=== PATIENT | male | born 1945 | race Caucasian/White ===

== ENCOUNTER → 2020-11-09 15:52 | Outpatient (BNVA) | payer BC, MEDICARE, SELFPAY | PROVIDERS: Visit Provider Urology | DX: Z76.89 Persons encountering health services in other specified circumstances (principal) | CPT/HCPCS: Q3014 ==

== ENCOUNTER → 2021-05-10 14:26 | Outpatient (BNVA) | payer BC, MEDICARE, SELFPAY | PROVIDERS: Visit Provider Urology | DX: R97.20 Elevated prostate specific antigen [PSA] (principal) | CPT/HCPCS: 99212 ==

== ENCOUNTER → 2022-05-09 14:27 | Outpatient (BNVA) | payer BC, SELFPAY | PROVIDERS: Visit Provider Urology | DX: R97.20 Elevated prostate specific antigen [PSA] (principal); N40.1 Benign prostatic hyperplasia with lower urinary tract symptoms; N13.8 Other obstructive and reflux uropathy; N39.43 Post-void dribbling | CPT/HCPCS: 99212 ==

== ENCOUNTER 2022-11-07 15:07 | Outpatient (AMB) | payer BC, SELFPAY ==
--- NOTE | 2022-11-07 15:21 | MHC.OFFVIS ---
Intake Intake Visit Reasons: 6 Month PSA(SET) Intake Note: Patient is present for PSA Follow Up Urology Medication: None Blood Thinner: None Alumni Relations Manager Required: No Allergies No Known Allergies Allergy (Verified 08/07/23 14:55) HPI HPI Comments History of Present Illness Details Finn is a very pleasant male. He is a patient of Dr. Amaya. He is seen for the following urologic conditions - elevated PSA PSA staying stable Continue six-month follow-up Discussed repeat PSA in 6 months versus trial of finasteride At this stage he feels symptoms of prostate tolerable Repeat PSA in 6 months with no coffee in the morning and no sex night before Elevated PSA He presents for - further evaluation of elevated PSA Current management is - observation - had short course of cipro with PCP 10/14 Laboratory investigations include - a total PSA evaluation. - 09/13 4.8 - 04/14 4.9, 05/16 6.1 20%, 11/15 6.4 18% Individualized Prostate Cancer Risk Calculator - < 5% high risk Symptoms include - weaker stream, nocturia x1, does fully empty Therapeutic plan will be - continue PSA surveillance PFSH Social History Years Smoked: 50 years Review of Systems Const Denies chills and Denies fever(s) Card Reports no additional complaints and Denies syncope Resp Denies cough GI Denies abdominal pain and Denies heartburn Reports as per HPI and Denies change in libido Neuro Denies syncope Psych Denies change in libido Endo Denies change in libido Physical Exam Const General: cooperative, healthy appearing, comfortable and no acute distress Orientation/consciousness: patient oriented x3 HEENT Face and sinus: Yes normal facial exam Mouth: moist mucous membranes Neck Neck: Yes normal visual inspection, Yes full ROM and Yes trachea midline Chest Chest palpation & inspection: normal inspection of the chest Resp Effort & Inspection: normal respiratory effort, able to speak in complete sentences and no respiratory distress GI Inspection: Yes normal to inspection Back/Spine/Pelvis Cervical Spine: normal cervical lordosis Thoracic/Lumbar Spine: thoracic and lumbar spine normal to inspection Skin General skin exam: no rashes or lesions noted Neuro General: patient oriented x3, gait normal, tone normal and moves all extremities Extrem General: Yes normal to inspection and Yes capillary refill normal Assessment & Plan Assessment & Plan (1) Elevated PSA: Code(s): R97.20 - Elevated prostate specific antigen [PSA] (2) Benign prostatic hyperplasia (BPH) with post-void dribbling: Code(s): N40.1 - Benign prostatic hyperplasia with lower urinary tract symptoms; N39.43 - Post-void dribbling Plan Six-month follow-up PSA Orders: Orders PSA,Total (Free>4and<10) 6 Months N40.1 - Benign prostatic hyperplasia with lower urinary tract symptoms, N39.43 - Post-void dribbling Patient Instructions: Imaging studies, laboratory and physical exam results were discussed and reviewed in detail. No major barriers to patient understanding were identified. An opportunity to ask questions regarding the treatment plan was provided. All questions were answered. The patient expressed understanding and agreement with the above treatment plan. The patient is aware they should contact our office by phone for worsening of their current condition or the appearance of new urologic symptoms. Compliance is encouraged with any medications and followup testing that is ordered. It is a privilege to participate in the urologic care of your patient. If you have any questions or concerns regarding treatment for the above conditions, or other urologic issues, please do not hesitate to contact me. The office telephone contact is [phone]. This note is constructed using voice recognition software. While every effort has been made to ensure accuracy time study technician errors may have been included. Yours sincerely, Dr Jovani Ivey MD, [facility] [place] - Urology Providers of Expert, Compassionate Care for the Genitourinary System Coding Level of Care Code Est Pt Level 3 (31063) Diagnoses Elevated PSA R97.20 Benign prostatic hyperplasia (BPH) with post-void dribbling N40.1; N39.43
== END 2022-11-07 15:49 | disposition home or self-care (01) ==
LOC: HO.HUSH 15:07
PROVIDERS: Visit Provider Urology
DX: R97.20 Elevated prostate specific antigen [PSA] (principal); N40.1 Benign prostatic hyperplasia with lower urinary tract symptoms; N39.43 Post-void dribbling
CPT/HCPCS: 99213; 99499

== ENCOUNTER 2023-08-07 14:49 | Outpatient (AMB) | payer BC, SELFPAY ==
--- NOTE | 2023-08-07 14:55 | A.OFFVIS_ITS ---
Intake Intake Visit Reasons: PSA Results(set) Intake Note: Patient is present for Follow Up PSA Urology Med: None Antibiotic Allergy: None Blood Thinner: None Pharmacy: [facility] Allergies No Known Allergies Allergy (Verified 08/07/23 14:55) HPI HPI Comments History of Present Illness Details Finn is a very pleasant male. He is a patient of Dr. Walter. He is seen for the following urologic conditions - elevated PSA Six month follow-up PSA - PSA remains elevated Recommend trial of finasteride Four month follow-up PSA Elevated PSA He presents for - further evaluation of elevated PSA Current management is - observation - had short course of cipro with PCP 10/14 Laboratory investigations include - a total PSA evaluation. - 09/13 4.8 - 04/14 4.9, 05/16 6.1 20%, 11/15 6.4 18%, 05/17 7.0 Individualized Prostate Cancer Risk Calculator - < 5% high risk Symptoms include - weaker stream, nocturia x1, does fully empty Therapeutic plan will be - continue PSA surveillance PFSH Social History Years Smoked: 50 years Review of Systems Const Denies chills and Denies fever(s) Card Reports no additional complaints and Denies syncope Resp Denies cough GI Denies abdominal pain and Denies heartburn Reports as per HPI and Denies change in libido Neuro Denies syncope Psych Denies change in libido Endo Denies change in libido Physical Exam Const General: cooperative, healthy appearing, comfortable and no acute distress Orientation/consciousness: patient oriented x3 HEENT Face and sinus: Yes normal facial exam Mouth: moist mucous membranes Neck Neck: Yes normal visual inspection, Yes full ROM and Yes trachea midline Chest Chest palpation & inspection: normal inspection of the chest Resp Effort & Inspection: normal respiratory effort, able to speak in complete sentences and no respiratory distress GI Inspection: Yes normal to inspection Back/Spine/Pelvis Cervical Spine: normal cervical lordosis Thoracic/Lumbar Spine: thoracic and lumbar spine normal to inspection Skin General skin exam: no rashes or lesions noted Neuro General: patient oriented x3, gait normal, tone normal and moves all extremities Extrem General: Yes normal to inspection and Yes capillary refill normal Assessment & Plan Assessment & Plan (1) Benign prostatic hyperplasia (BPH) with post-void dribbling: Code(s): N40.1 - Benign prostatic hyperplasia with lower urinary tract symptoms; N39.43 - Post-void dribbling (2) Elevated PSA: Code(s): R97.20 - Elevated prostate specific antigen [PSA] Plan Four month follow-up PSA Orders: Orders PSA,Total (Free>4and<10) 4 Months R97.20 - Elevated prostate specific antigen [PSA] Medications: New finasteride 5 mg PO DAILY 90 tabs 1RF 90 days N39.43 - Post-void dribbling, N40.1 - Benign prostatic hyperplasia with lower urinary tract symptoms Patient Instructions: Imaging studies, laboratory and physical exam results were discussed and reviewed in detail. No major barriers to patient understanding were identified. An opportunity to ask questions regarding the treatment plan was provided. All questions were answered. The patient expressed understanding and agreement with the above treatment plan. The patient is aware they should contact our office by phone for worsening of their current condition or the appearance of new urologic symptoms. Compliance is encouraged with any medications and followup testing that is ordered. It is a privilege to participate in the urologic care of your patient. If you have any questions or concerns regarding treatment for the above conditions, or other urologic issues, please do not hesitate to contact me. The office telephone contact is [phone]. This note is constructed using voice recognition software. While every effort has been made to ensure accuracy technical expert errors may have been included. Yours sincerely, Dr Jovani Ivey MD, [facility] - Urology Providers of Expert, Compassionate Care for the Genitourinary System Coding Level of Care Code Est Pt Level 4 (66797) Diagnoses Benign prostatic hyperplasia (BPH) with post-void dribbling N40.1; N39.43 Elevated PSA R97.20
== END 2023-08-07 15:12 | disposition home or self-care (01) ==
PROVIDERS: Visit Provider Urology
DX: N40.1 Benign prostatic hyperplasia with lower urinary tract symptoms (principal); N39.43 Post-void dribbling; R97.20 Elevated prostate specific antigen [PSA]
CPT/HCPCS: 99214

== ENCOUNTER → 2023-08-07 14:49 | Outpatient (BNVA) | payer BC, SELFPAY | PROVIDERS: Visit Provider Urology ==

== ENCOUNTER 2024-01-29 15:10 | Outpatient (AMB) | payer BC, SELFPAY ==
--- NOTE | 2024-01-29 15:52 | MHC.OFFVIS ---
Intake Intake Visit Reasons: 4m/PSA(set) Intake Note: Patient is Present for Follow Up PSA Urology Medication:Finasteride, Antibiotic Allergies: None Blood Thinners: none Allergies No Known Allergies Allergy (Verified 01/29/24 15:53) Medication List - Last Reconciled 01/29/24 by Jovani Ivey MD amitriptyline 10 mg PO BEDTIME atorvastatin 80 mg PO DAILY calcium carbonate (Calcium) 600 mg PO DAILY escitalopram oxalate 10 mg PO DAILY finasteride 5 mg PO DAILY 90 days zzqiceypxku-mhibsgper-htyzpanz 200-62.5-25 mcg (Trelegy Ellipta) 1 ea inhalation DAILY hydrochlorothiazide 12.5 mg PO QAM valsartan 80 mg PO DAILY HPI HPI Comments History of Present Illness Details Finn is a very pleasant male. He is a patient of Dr. Walter. He is seen for the following urologic conditions - elevated PSA Six month follow-up PSA - decreased from 7.0-4.0 - six-month follow-up PSA Elevated PSA He presents for - further evaluation of elevated PSA Current management is - observation - had short course of cipro with PCP 10/14 Laboratory investigations include - a total PSA evaluation. - 09/13 4.8 - 04/14 4.9, 05/16 6.1 20%, 11/15 6.4 18%, 05/17 7.0, 01/18 4.0 Individualized Prostate Cancer Risk Calculator - < 5% high risk Symptoms include - weaker stream, nocturia x1, does fully empty Therapeutic plan will be - continue PSA surveillance PFSH Social History Years Smoked: 50 years Review of Systems Const Denies chills and Denies fever(s) Card Reports no additional complaints and Denies syncope Resp Denies cough GI Denies abdominal pain and Denies heartburn Reports as per HPI and Denies change in libido Neuro Denies syncope Psych Denies change in libido Endo Denies change in libido Physical Exam Const General: cooperative, healthy appearing, comfortable and no acute distress Orientation/consciousness: patient oriented x3 HEENT Face and sinus: Yes normal facial exam Mouth: moist mucous membranes Neck Neck: Yes normal visual inspection, Yes full ROM and Yes trachea midline Chest Chest palpation & inspection: normal inspection of the chest Resp Effort & Inspection: normal respiratory effort, able to speak in complete sentences and no respiratory distress GI Inspection: Yes normal to inspection Back/Spine/Pelvis Cervical Spine: normal cervical lordosis Thoracic/Lumbar Spine: thoracic and lumbar spine normal to inspection Skin General skin exam: no rashes or lesions noted Neuro General: patient oriented x3, gait normal, tone normal and moves all extremities Extrem General: Yes normal to inspection and Yes capillary refill normal Assessment & Plan Assessment & Plan (1) Benign prostatic hyperplasia (BPH) with post-void dribbling: Code(s): N40.1 - Benign prostatic hyperplasia with lower urinary tract symptoms; N39.43 - Post-void dribbling (2) Elevated PSA: Code(s): R97.20 - Elevated prostate specific antigen [PSA] Plan Continue finasteride Six-month follow-up Orders: Orders PSA,Total (Free>4and<10) 6 Months N40.1 - Benign prostatic hyperplasia with lower urinary tract symptoms, N39.43 - Post-void dribbling Medications: Refilled finasteride 5 mg PO DAILY 90 tabs 1RF 90 days N40.1 - Benign prostatic hyperplasia with lower urinary tract symptoms, N39.43 - Post-void dribbling Patient Instructions: Imaging studies, laboratory and physical exam results were discussed and reviewed in detail. No major barriers to patient understanding were identified. An opportunity to ask questions regarding the treatment plan was provided. All questions were answered. The patient expressed understanding and agreement with the above treatment plan. The patient is aware they should contact our office by phone for worsening of their current condition or the appearance of new urologic symptoms. Compliance is encouraged with any medications and followup testing that is ordered. It is a privilege to participate in the urologic care of your patient. If you have any questions or concerns regarding treatment for the above conditions, or other urologic issues, please do not hesitate to contact me. The office telephone contact is [phone]. This note is constructed using voice recognition software. While every effort has been made to ensure accuracy survey research center director errors may have been included. Yours sincerely, Dr Jovani Ivey MD, [facility] - Urology Providers of Expert, Compassionate Care for the Genitourinary System Coding Level of Care Code Est Pt Level 3 (99817) Diagnoses Benign prostatic hyperplasia (BPH) with post-void dribbling N40.1; N39.43 Elevated PSA R97.20
== END 2024-01-29 16:23 | disposition home or self-care (01) ==
PROVIDERS: PCP Internal Medicine; Visit Provider Urology
DX: N40.1 Benign prostatic hyperplasia with lower urinary tract symptoms (principal); N39.43 Post-void dribbling; R97.20 Elevated prostate specific antigen [PSA]
CPT/HCPCS: 99213

== ENCOUNTER → 2024-01-29 15:10 | Outpatient (BNVA) | payer BC, SELFPAY | PROVIDERS: PCP Internal Medicine; Visit Provider Urology ==

== ENCOUNTER 2024-09-09 13:19 | Outpatient (AMB) | payer BC, SELFPAY ==
--- NOTE | 2024-09-09 13:20 | MHC.OFFVIS ---
Intake Visit Reasons: 6M Follow Up-PSA(SET)[facility] Intake Note: Patient is Present for Telephone Follow Up PSA Urology Med:Finasteride Antibiotic Allergy:None Blood Thinner: None Recent PSA: 09/05/24 PSA: 4.2 Retail Seasonal Specialist Required: No Allergies No Known Allergies Allergy (Verified 09/09/24 13:24) HPI Comments Details: Finn is a very pleasant male. He is a patient of Dr. Walter. He is seen for the following urologic conditions - elevated PSA Telemedicine Evaluation 15 min Consultation DoximCARDFREE Omar Video Six month follow-up PSA - decreased from 7.0-4.0-4.2 - six-month follow-up PSA Elevated PSA He presents for - further evaluation of elevated PSA Current management is - observation - had short course of cipro with PCP 10/14 Laboratory investigations include - a total PSA evaluation. - 09/13 4.8, 04/14 4.9, 05/16 6.1 20%, 11/15 6.4 18%, 05/17 7.0, 01/18 4.0, 08/18 4.2 Individualized Prostate Cancer Risk Calculator - < 5% high risk Symptoms include - weaker stream, nocturia x1, does fully empty Therapeutic plan will be - continue PSA surveillance PFSH Social History Years Smoked: 50 years Telehealth Telehealth Telehealth Platform: [employer] Location of provider rendering services: practice address Location of patient: address on file Patient Identification confirmed using: Name, : Yes Telehealth method: video Patient verbally consented to treatment: Yes Patient verbally consented to billing insurance company: Yes Patient informed of any privacy concerns related to visit: Yes Minutes spent on Phone/Video with Pt.: 15 Assessment & Plan Assessment & Plan (1) Benign prostatic hyperplasia (BPH) with post-void dribbling: Code(s): N40.1 - Benign prostatic hyperplasia with lower urinary tract symptoms; N39.43 - Post-void dribbling Category: Medical (2) Elevated PSA: Code(s): R97.20 - Elevated prostate specific antigen [PSA] Category: Medical Plan Six-month follow-up PSA office Orders: Orders PSA,Total (Free>4and<10) 6 Months R97.20 - Elevated prostate specific antigen [PSA] Prostate Specific Antigen 09/02/24 R97.20 - Elevated prostate specific antigen [PSA] Patient Instructions: Imaging studies, laboratory and physical exam results were discussed and reviewed in detail. No major barriers to patient understanding were identified. An opportunity to ask questions regarding the treatment plan was provided. All questions were answered. The patient expressed understanding and agreement with the above treatment plan. The patient is aware they should contact our office by phone for worsening of their current condition or the appearance of new urologic symptoms. Compliance is encouraged with any medications and followup testing that is ordered. It is a privilege to participate in the urologic care of your patient. If you have any questions or concerns regarding treatment for the above conditions, or other urologic issues, please do not hesitate to contact me. The office telephone contact is [phone]. This note is constructed using voice recognition software. While every effort has been made to ensure accuracy scheduling coordinator errors may have been included. Yours sincerely, Dr Jovani Ivey MD, [facility] - Urology Providers of Expert, Compassionate Care for the Genitourinary System Coding Level of Care Code Tele Est Pt Level 3 (79389) Diagnoses Benign prostatic hyperplasia (BPH) with post-void dribbling N40.1; N39.43 Elevated PSA R97.20
== END 2024-09-09 15:37 | disposition home or self-care (01) ==
LOC: HO.HUSH 13:19
PROVIDERS: PCP Internal Medicine; Visit Provider Urology
DX: N40.1 Benign prostatic hyperplasia with lower urinary tract symptoms (principal); N39.43 Post-void dribbling; R97.20 Elevated prostate specific antigen [PSA]
CPT/HCPCS: 99213

== ENCOUNTER → 2024-09-09 13:19 | Outpatient (BNVA) | payer BC, SELFPAY | PROVIDERS: PCP Internal Medicine; Visit Provider Urology ==

== ENCOUNTER 2025-03-16 15:45 | Outpatient (AMB) | payer BC, SELFPAY ==
--- NOTE | 2025-03-16 16:06 | A.OFFVIS_ITS ---
Intake Visit Reasons: 6M PSA Intake Note: Patient presents for a 6m follow up. Allergies No Known Allergies Allergy (Verified 03/16/25 16:12) HPI Comments Details: Finn is a very pleasant male. He is a patient of Dr. Walter. He is seen for the following urologic conditions - elevated PSA Six month follow-up PSA Remaining steady in low 4s Adequate voiding parameters Twelve month follow-up repeat PSA Elevated PSA He presents for - further evaluation of elevated PSA Current management is - observation - had short course of cipro with PCP 10/14 Laboratory investigations include - a total PSA evaluation. - 09/13 4.8, 04/14 4.9, 05/16 6.1 20%, 11/15 6.4 18%, 05/17 7.0, 01/18 4.0, 08/18 4.2, 03/19 4.5 Individualized Prostate Cancer Risk Calculator - < 5% high risk Symptoms include - weaker stream, nocturia x1, does fully empty Therapeutic plan will be - continue PSA surveillance PFSH Social History Years Smoked: 50 years Review of Systems Const Denies chills and Denies fever(s) Card Reports no additional complaints and Denies syncope Resp Denies cough GI Denies abdominal pain and Denies heartburn Reports as per HPI and Denies change in libido Neuro Denies syncope Psych Denies change in libido Endo Denies change in libido Physical Exam Const General: cooperative, healthy appearing, comfortable and no acute distress Orientation/consciousness: patient oriented x3 HEENT Face and sinus: Yes normal facial exam Mouth: moist mucous membranes Neck Neck: Yes normal visual inspection, Yes full ROM and Yes trachea midline Chest Chest palpation & inspection: normal inspection of the chest Resp Effort & Inspection: normal respiratory effort, able to speak in complete sentences and no respiratory distress GI Inspection: Yes normal to inspection Back/Spine/Pelvis Cervical Spine: normal cervical lordosis Thoracic/Lumbar Spine: thoracic and lumbar spine normal to inspection Skin General skin exam: no rashes or lesions noted Neuro General: patient oriented x3, gait normal, tone normal and moves all extremities Extrem General: Yes normal to inspection and Yes capillary refill normal Assessment & Plan Assessment & Plan (1) Elevated PSA: Code(s): R97.20 - Elevated prostate specific antigen [PSA] Category: Medical (2) Benign prostatic hyperplasia (BPH) with post-void dribbling: Code(s): N40.1 - Benign prostatic hyperplasia with lower urinary tract symptoms; N39.43 - Post-void dribbling Category: Medical Plan 12 month follow-up repeat PSA Orders: Orders PSA,Total (Free>4and<10) 12 Months N39.43 - Post-void dribbling, N40.1 - Benign prostatic hyperplasia with lower urinary tract symptoms Medications: Refilled finasteride 5 mg PO DAILY 90 tabs 3RF 90 days N39.43 - Post-void dribbling, N40.1 - Benign prostatic hyperplasia with lower urinary tract symptoms Patient Instructions: This note is constructed using voice recognition software. While every effort has been made to ensure accuracy tooth cutter clutch errors may have been included. Imaging studies, laboratory and physical exam results were discussed and reviewed in detail. No major barriers to patient understanding were identified. An opportunity to ask questions regarding the treatment plan was provided. All questions were answered. The patient expressed understanding and agreement with the above treatment plan. The patient is aware they should contact our office by phone for worsening of their current condition or the appearance of new urologic symptoms. Compliance is encouraged with any medications and followup testing that is ordered. It is a privilege to participate in the urologic care of your patient. If you have any questions or concerns regarding treatment for the above conditions, or other urologic issues, please do not hesitate to contact me. The office telephone contact is [phone]. Sincerely, Dr Jovani Ivey MD, [facility] - Urology Compassionate Specialist Care for the Genitourinary System Coding Level of Care Code Est Pt Level 3 (02755) Complex EM visit Add On G2211 Diagnoses Elevated PSA R97.20 Benign prostatic hyperplasia (BPH) with post-void dribbling N40.1; N39.43
--- OUTSIDE RECORDS SUMMARY | 2025-03-16 18:31 | XMS_ITS | Data Portability ---
Author Organization [place] - [facility], Allergy Address [address] [place] [id number] Care Team Providers Care Legal Summer Intern Name Role Phone MARIAH PEREZ Primary Care Provider [phone] Assessment Encounter Date Assessment Date Assessment LastModified by Organization Details LastModified Time 06/17/2024 06/17/2024 Patient presents for cerumen removal. Cerumen removed bilaterally without difficulty. Follow up as scheduled for repeat procedure. [email or web address] Not available 06/17/2024 14:46:35 01/06/2025 01/06/2025 79 year-old male with bilateral amplification presents for cerumen impaction removal. Cerumen impaction removed bilaterally, which patient tolerated well. Otologic exam demonstrated TMs are intact with well-aerated middle ear spaces. I recommend updating his audiometric testing. He will return for formal hearing evaluation. Then he will continue his routine 6-month cerumen debridements. [email or web address] Not available 01/06/2025 16:01:22 02/03/2025 02/03/2025 79-year-old male with bilateral amplification presents for hearing evaluation. Otologic exam demonstrates TMs are intact with well-aerated middle ear spaces. Audiogram shows stable neurosensory hearing loss. Recommend hearing aid adjustment or replacement as needed. Recommend annual follow up with repeat audiometric testing, or sooner with any concerns. Recommend 6-month cerumen debridement. [email or web address] Not available 02/03/2025 16:20:22 Plan of Treatment Reminders Order Date Submit Date Provider Last Modified By Organization Details Last Modified Time Details Appointments None record ed. Lab None record ed. Referral None record ed. Procedures None record ed. Surgeries None record ed. Imaging None record ed. Medication Orders None record ed. Patient TargetsNo targets recorded. Patient InstructionsNo instructions recorded. Reason for Referral None Reported. Results Created Date Observation Date Name Description Value Unit Range Abnormal Flag Note LastModifiedBy Organization Detail LastModifiedTime 07/15/20 24 02/07/2024 imagi ng/di agnos tic resul t No observ ation record ed. [email or web address] Not Available 03:17:20 07/15/20 24 05/20/2020 imagi ng/di agnos tic resul t No observ ation record ed. [email or web address] Not Available 03:17:28 07/15/20 24 05/20/2020 imagi ng/di agnos tic resul t No observ ation record ed. [email or web address] Not Available 03:17:30 07/15/20 24 01/17/2024 audio gram No observ ation record ed. [email or web address] Not Available 03:17:51 07/15/20 24 02/07/2024 audio gram No observ ation record ed. [email or web address] Not Available 03:17:54 07/15/20 24 04/13/2019 audio gram No observ ation record ed. [email or web address] Not Available 03:18:07 07/15/20 24 05/01/2019 audio gram No observ ation record ed. [email or web address] Not Available 03:18:10 07/15/20 24 05/20/2020 audio gram No observ ation record ed. [email or web address] Not Available 03:18:19 07/15/20 24 05/21/2019 audio gram No observ ation record ed. [email or web address] Not Available 03:18:22 07/15/20 24 06/17/2019 audio gram No observ ation record ed. [email or web address] Not Available 03:18:23 02/04/20 audio gram No observ ation record ed. [email or web address] Not Available 2024 16:15:59 Result Notes None recorded. Problems Name Problem SNOMED Code Status Onset Date Resolution Date Notes Provider Name and Address Organization Details Recorded Time Impacted cerumen of bilateral ears 44187823310 18512 Active 2017 Impacted cerumen, bilateral ; Note: Date Diagnosed : 04/10/2018 3:36 PM (H61.23) Not Available [facility] 4 02:49:50 Sensorine ural hearing loss of bilateral ears 630866448 Active 2017 Sensorine ural hearing loss, bilateral ; Note: Date Diagnosed : 04/10/2018 4:13 PM (H90.3) Not Available [facility] 4 02:49:52 Bilateral tinnitus 30470836245 02 Active 2017 Tinnitus, bilateral ; Note: Date Diagnosed : 04/10/2018 3:46 PM (H93.13) Not Available [facility] 4 02:49:52 Impacted cerumen in right ear 95059578198 04672 Active 2023 Impacted cerumen, right ear; Note: Date Diagnosed : 12/24/2023 2:29 PM (H61.21) Not Available [facility] 4 02:49:51 Problem Notes None recorded. Procedures Surgical History Date Name Laterality Status Provider Name and Address Organization Details Recorded Time 5 Air & Speech Audio with Tymps (53161, 06214 & 33067) completed SHAHIDA BRIDGES [address], [phone], [facility] - [facility] 02/03/2025 15:29:09 5 Cerumen removal without microscope bilat completed SHILO HATHAWAY PA-C [address] [place] [address], [phone], [facility] - [facility] 01/06/2025 16:01:57 4 Cerumen removal without microscope bilat completed DOMINIC SANTOYO PA-C [address] [place] [address],[address], [phone], [facility] - [facility] 06/17/2024 14:46:07 Imaging Results Imaging Date Name Status LastModified by Organ at[facility] Details LastModified Time 02/07/2024 imaging/diagno stic result completed Information not available 07/15/2024 03:17:20 05/20/2020 imaging/diagno stic result completed Information not available 07/15/2024 03:17:28 05/20/2020 imaging/diagno stic result completed Information not available 07/15/2024 03:17:30 01/17/2024 audiogram completed Information not available 07/15/2024 03:17:51 02/07/2024 audiogram completed Information not available 07/15/2024 03:17:54 04/13/2019 audiogram completed Information not available 07/15/2024 03:18:07 05/01/2019 audiogram completed Information not available 07/15/2024 03:18:10 05/20/2020 audiogram completed Information not available 07/15/2024 03:18:19 05/21/2019 audiogram completed Information not available 07/15/2024 03:18:22 06/17/2019 audiogram completed Information not available 07/15/2024 03:18:23 02/03/2025 audiogram completed BARCODE Information no t available 02/03/2025 16:15:59 Procedure Notes None recorded. Medical Equipment None Reported. Allergies No known drug allergies Medications Name Sig Start Date Stop Date Status Note LastModified by Organization Details LastModified Time celecoxib 200 mg capsule TAKE 1 CAPSULE BY MOUTH EVERY DAY active Not Available Not Available No t Available atorvasta tin 80 mg tablet TAKE 1 TABLET BY MOUTH EVERY DAY active Not Available Not Available No t Available doxycycli ne hyclate 100 mg capsule 02/03 completed Medicati on ID: [id number] D uration Value: 10 Brand Name: doxycycl ine hyclate Send Method: E-Prescr ibed Sub s Allowed: subs OK Speci al Instruct ion: TAKE 1 CAPSULE BY MOUTH TWICE A DAY, NO CALCIUM PRODUCTS 2 HOURS BEFOR E OR AFTER TAKING M edicatio nGeneric Name: doxycycl ine hyclate Not Available Not Available Not Available valsartan 80 mg tablet TAKE 1 TABLET BY MOUTH EVERY DAY active Not Available Not Available No t Available amoxicill in 500 mg tablet TAKE 1 TABLET BY MOUTH 3 TIMES A DAY FOR 7 DAYS 02/03 completed Not Available Not Available Not Available citalopra m 20 mg tablet 09/29 completed Medicati on ID: [id number] D uration Value: 30 Reason: () Brand Name: citalopr am Send Method: E-Prescr ibed Sub s Allowed: subs OK Medic ationGen ericName : citalopr am Not Available Not Available Not Available prednisol one acetate 1 % eye drops,[facility] 02/03 completed Medicati on ID: [id number] D uration Value: 18 Brand Name: predniso lone acetate Send Method: E-Prescr ibed Sub s Allowed: subs OK Speci al Instruct ion: INSTILL 1 DROP INTO LEFT EYE 4 TIMES A DAY Medi cationGe nericNam e: predniso lone acetate Not Available Not Available Not Available trazodone 100 mg tablet 05/20 completed Medicati on ID: [id number] D uration Value: 30 Reason: () Brand Name: trazodon e Send Method: E-Prescr ibed Sub s Allowed: subs OK Medic ationGen ericName : trazodon e Not Available Not Available Not Available amitripty line 10 mg tablet TAKE 1 TABLET BY MOUTH EVERYDAY AT BEDTIME 02/03 completed Not Available Not Available Not Available albuterol sulfate HFA 90 mcg/actua tion aerosol inhaler INHALE 2 PUFFS BY MOUTH EVERY 4 HOURS NEEDED FOR WHEEZING 02/03 completed Not Available Not Available Not Available finasteri de 5 mg tablet TAKE 1 TABLET BY MOUTH EVERY DAY active Not Available Not Available No t Available escitalop renzo 10 mg tablet TAKE 1 TABLET BY MOUTH EVERY DAY active Not Available Not Available No t Available Spiriva with HandiHale r 18 mcg and inhalatio n capsules 05/20 completed Medicati on ID: [id number] D uration Value: 90 Reason: () Brand Name: Spiriva with HandiHal er Send Method: E-Prescr ibed Sub s Allowed: subs OK Medic ationGen ericName : Spiriva with HandiHal er Not Available Not Available Not Available hydrochlo rothiazid e 12.5 mg tablet TAKE 1 TABLET BY MOUTH EVERY DAY active Not Available Not Available No t Available Citracal Plus Bone Density Builder 300 mg-200 unit-13.5 mg tablet 05/20 completed Medicati on ID: [id number] R bebeto: () Brand Name: Citracal Plus Bone Density Send Method: E-Prescr ibed Sub s Allowed: subs OK Medic ationGen ericName : Citracal Plus Bone Density Not Available Not Available Not Available Vitamin D3 50 mcg (2,000 unit) capsule 05/20 completed Medicati on ID: [id number] R bebeto: () Brand Name: Vitamin D3 Send Method: E-Prescr ibed Sub s Allowed: subs OK Medic ationGen ericName : Vitamin D3 Not Available Not Available Not Available Incruse Ellipta 62.5 mcg/actua tion powder for inhalatio n INHALE 1 PUFF BY MOUTH EVERY 24 HOURS 02/03 completed Not Available Not Available Not Available Trelegy Ellipta 100 mcg-62.5 mcg-25 mcg powder for inhalatio n INHALE 1 PUFF BY MOUTH EVERY DAY AT THE SAME TIME EVERY DAY 02/03 completed Not Available Not Available Not Available Wixela Inhub 250 mcg-50 mcg/dose powder for inhalatio n INHALE 1 PUFF BY MOUTH TWICE A DAY *RINSE MOUTH AND THROAT AFTER USE* 02/03 completed Not Available Not Available Not Available Trelegy Ellipta 200 mcg-62.5 mcg-25 mcg powder for inhalatio n INHALE 1 PUFFS BY MOUTH AT THE SAME TIME EVERY DAY active Not Available Not Available No t Available Vitals Date Recorded Body height Body mass index (BMI) Body weight Provider Name and Address Organization Details Last Updated DateTime 02/03/2025 180.34 cm 26.1 kg/m2 46696.77 g Shawnee Tierney [place] - [facility] 02/03/2025 15:36:01 Date Recorded Body height Body mass index (BMI) Body weight Provider Name and Address Organization Details Last Updated DateTime 06/17/2024 180.34 cm 26.8 kg/m2 63308.74 g [place] [facility] 06/17/2024 14:35:49 Date Recorded Body height Body mass index (BMI) Body weight Provider Name and Address Organization Details Last Updated DateTime 01/06/2025 180.34 cm 25.2 kg/m2 72331.22 g Maryann Gilbert [place] - [facility] 01/06/2025 15:42:01 Social History None recorded. Functional Status None recorded. Mental Status None recorded. Family History Nothing Reported. Medical History No medical history recorded. Past Encounters Encounter ID Performer Location Encounter Start Date Encounter Closed Date Diagnosis/Indication Diagnosis SNOMED-CT Code Diagnosis ICD10 Code Diagnosis Note [id number] BURKE REDDY MD [facility] [address] [address] 06/17/2024 13:57:09 06/17/2024 14:46:18 Impacted cerumen of bilateral ears 1916232944 270769 H61.23 Sensorineu ral hearing loss of bilateral ears 231034978 H90.3 [id number] JABARI GUTIERREZ MD [facility] [address] [address] 01/06/2025 15:36:15 01/06/2025 16:01:21 Impacted cerumen of bilateral ears 5757474085 356809 H61.23 Bilateral tinnitus 14687 98047 102 H93.13 Sensorineu ral hearing loss of bilateral ears 127183556 H90.3 [id number] JABARI GUTIERREZ MD [facility] [address] [address] 02/03/2025 14:57:04 02/03/2025 15:53:17 Sensorineural hearing loss of bilateral ears 695015104 H90.3 Audiologic al evaluation results:Ri ght ear:{{Norm al sloping* M ild Modera te Moderat christiano-severe Severe Pr ofound Nor mal auditory thresholds }} to {{mild mod erate mode rately-sev ere severe profound* with}} {{sensorin eural hearing loss with* cond uctive hearing loss with mixed hearing loss with}} {{excellen t good diogenes r* poor no t measurable }} word recognitio n.Left ear:{{Norm al sloping* M ild Modera te Moderat christiano-severe Severe Pr ofound Nor mal auditory thresholds }} to {{mild mod erate mode rately-sev ere severe * profound with}} {{sensorin eural hearing loss with* cond uctive hearing loss with mixed hearing loss with}} {{excellen t good diogenes r* poor no t measurable }} word recognitio n.Tympanom etry:Right Ear:{{Type A* Type As Type Ad Type C Type C, shallow & rounded Ty pe B Type B with large volume Cou ld not maintain a hermetic seal}}Left Ear:{{Type A* Type As Type Ad Type C Type C, shallow & rounded Ty pe B Type B with large volume Cou ld not maintain a hermetic seal}} Bilateral tinnitus 99372 69322 102 H93.13 Health Concerns Section Related Observation LastModified by Organization Detai ls LastModified Time None Recorded Concern Status LastModified by Organization Details LastModified Time None Recorded Advance Directives Directive None Recorded Payers Encounter Date Sequence Insurance Name Policy Number Policy Jarrett Covered Member ID Jarrett Member ID Guarantor Name 06/17/[address] [facility]: MEDICARE PPO BLUE (MEDICARE REPLACEMENT PPO) [id number] [employer] [id number] 01/06/[address] [facility]: MEDICARE PPO BLUE (MEDICARE REPLACEMENT PPO) [id number] [employer] [id number] 02/03/[address] [facility]: MEDICARE PPO BLUE (MEDICARE REPLACEMENT PPO) [id number] [employer] [id number] [address] [place] [address] [employer] Notes Date Note Type Note Provider Name and Address Organization Details Recorded Time 06/17/2024 text/html 78-year-old male presents for cerumen removal. Had hearing test in January showing sloping sensorineural hearing loss bilaterally. Feels his hearing continues to decline slowly. BURKE BRADY MD [address] [place] [address], [phone], [facility] - [facility] 06/17/2024 16:53:29 01/06/2025 text/html 79yo male presen ts for evaluation of the ears. He feels like his hearing aids do not work well. He brought them in our office. They are approximately 5 to 6 years old. He has not had any recent amplification adjustments. Denies otalgia, otorrhea, change in tinnitus, or Qtip use. JABARI GUTIERREZ MD [address] [place] [address], [phone], [facility] - [facility] 01/06/2025 17:37:24 02/03/2025 text/html 79 year-old male with bilateral amplification presents for hearing evaluation. His hearing aids broke and he is interested in fixing or updating the technology. He reports tinnitus in both ears, worse since he has not been able to wear aids. 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 JABARI GUTIERREZ MD [address] [place] [address], [place], [phone], [facility] 02/03/2025 17:30:23
--- OUTSIDE RECORDS SUMMARY | 2025-03-16 18:31 | XMS_ITS | Clinical Summary ---
Author Organization [facility] [employer] [facility] lin Address [address] [place] [address] Care Team Providers Care Semiconductor Wafer Inspector Name Role Phone Dewey Amaya MD Primary Care Provider Immunizations Name Administration Dates Next Due Fluzone Trivalent High Dose (65+ years) 09/02/20 20,09/21/2019 Social History Tobacco Use Types Packs/Day Years Used Date Smoking Tobacco: Never Assessed Sex and Gender Information Value Date Recorded Sex Assigned at Not on file Legal Sex Male 5:48 PM EDT Gender Identity Not on file Sexual Orientation Not on file Plan of Treatment Health Maintenance Due Date Last Done Comments Depression: Screening Annual ly using PHQ-2/9 in Adults 18 yrs or above (or HM Modifier)([facility]) 1945 SDNJ Screening Reminder: Yola barry for all adults ([facility]) 1962 Tobacco Smoking Cessation: i n Adults excluding Women: Behavioral and Pharmacotherapy Interventions ([facility]) 1962 DTaP/Tdap/Td Vaccines ([facility]) (1 - Tdap) 1963 Lipid Screening: Every 5 yrs for Men aged 35+ (or HM Modifier) ([facility]) 1980 Pneumococcal Vaccination Scr eening: Patients 50+ yrs of age ([facility]) (1 of 1 - PCV) 1994 Zoster/Shingles Vaccine Seri es Screening: Adults aged 18+ yrs (or HM Modifiers)([facility]) (1 of 2) 1994 RSV Vaccines (1 - 1-dose 75+ series) 2019 COVID-19 Vaccine Screening: Initial Series and Booster Status ([facility]) ( - 2023- season) 2024 Flu Vaccination: Ages 65+: Y early High Dose Recommended (or Modifier)([facility]) 06/25/2025 09/02/2020, 9 [employer] Devices Not on file Insurance [facility] MEDICARE Care Teams Semiconductor Wafer Inspector Relationship Specialty Start Date End Date Dewey Amaya MD [address] [place] [phone] PCP - Pricing Coordinator 09/21/19
== END 2025-03-16 16:50 | disposition home or self-care (01) ==
LOC: HO.HUSH 15:45
PROVIDERS: PCP Internal Medicine; Visit Provider Urology
DX: R97.20 Elevated prostate specific antigen [PSA] (principal); N40.1 Benign prostatic hyperplasia with lower urinary tract symptoms; N39.43 Post-void dribbling
CPT/HCPCS: 99213

== ENCOUNTER → 2025-03-16 15:45 | Outpatient (BNVA) | payer BC, SELFPAY | PROVIDERS: PCP Internal Medicine; Visit Provider Urology | DX: Z13.89 Encounter for screening for other disorder (principal) ==